=== PATIENT | male | born 1975 | race Caucasian/White ===

== ENCOUNTER 2020-08-27 14:39 | Emergency (ER) | payer BC, OTHER ==
[2020-08-27] MEDS ORDERED: Ondansetron 4 MG/2 ML SDV IVPUSH ONE (14:46)
[2020-08-27] MEDS ORDERED: Sodium Chloride 0.9% 10 ML Syringe FLUSH PRN (14:46)
[2020-08-27] MEDS ORDERED: Ketorolac 30 MG/ML SDV IVPUSH ONE (14:46)
[2020-08-27] MEDS ORDERED: Dexamethasone 4 MG/ML SDV IVPUSH STA (14:47)
[2020-08-27] MEDS ORDERED: Sodium Chloride 0.9% 1,000 ML IV SCH (15:00)
[2020-08-27 15:41] VITALS: BP 183/163; PULSE 83
[2020-08-27] MEDS ORDERED: Morphine 4 MG/ML VIAL IVPUSH ONE (15:45)
--- NOTE | 2020-08-27 15:49 | EDM.PDOC ---
ED HPI GENERAL MEDICAL PROBLEM - General Chief Complaint: Gastrointestinal Problem Stated Complaint: COVID Time Seen by Provider: 08/27/20 14:50 Source of Information: Reports: Patient History Limitations: Reports: No Limitations - History of Present Illness INITIAL COMMENTS - FREE TEXT/NARRATIVE: Patient presented to the ED because of N/V/D x 1 week. He was tested for covid which was negative but his symptoms appeared a day after the testing. He is also c/o headache /, denies any neck stiffness. Headache Pain Score (Numeric/FACES): 9 - Related Data Allergies Allergy/AdvReac Type Severity Reaction Status Date / Time No Known Allergies Allergy Verified 11/18/13 16:00 Home Meds: Home Meds Nicotine [Nicotine Patch] 1 each TD DAILY #20 patch.[id number] 02/13/16 [Rx] hydroCHLOROthiazide [Hydrochlorothiazide] 25 mg PO DAILY #30 tablet 02/13/16 [Rx] Acetaminophen/HYDROcodone [Wray 325-5 MG] 1 - 2 tab PO Q6H PRN #10 tab 08/27/20 [Rx] Ondansetron [Zofran ODT] 4 mg PO Q4H PRN #10 tab.dis 08/27/20 [Rx] dexAMETHasone [Dexamethasone] 6 mg PO DAILY #30 tab 08/27/20 [Rx] Past Medical History - Past Health History Medical/Surgical History: Denies Medical/Surgical History - Infectious Disease History Infectious Disease History: Reports: Chicken Pox - Past Surgical History Musculoskeletal Surgical History: Reports: Arthroscopic Knee, Shoulder Surgery, Other (See Below) Social & Family History - Family History Oncologic: Reports: Pancreatic - Tobacco Use Tobacco Use Status *Q: Never Tobacco User Second Hand Smoke Exposure: No - Caffeine Use Caffeine Use: Reports: None - Recreational Drug Use Recreational Drug Use: No ED ROS GENERAL - Review of Systems Review Of Systems: See Below Constitutional: Reports: No Symptoms HEENT: Reports: No Symptoms Respiratory: Reports: No Symptoms Cardiovascular: Reports: No Symptoms Endocrine: Reports: No Symptoms GI/Abdominal: Reports: Diarrhea, Nausea, Vomiting : Reports: No Symptoms Musculoskeletal: Reports: No Symptoms Skin: Reports: No Symptoms Neurological: Reports: Headache Psychiatric: Reports: No Symptoms Hematologic/Lymphatic: Reports: No Symptoms Immunologic: Reports: No Symptoms ED EXAM, GENERAL - Physical Exam Exam: See Below Exam Limited By: No Limitations General Appearance: Alert, No Apparent Distress Eye Exam: Bilateral Eye: PERRL Nose: Normal Inspection, Normal Mucosa Throat/Mouth: Normal Inspection, Normal Lips, Normal Teeth Head: Atraumatic, Normocephalic Neck: Normal Inspection, Supple, Non-Tender, Full Range of Motion Respiratory/Chest: No Respiratory Distress, Lungs Clear, Normal Breath Sounds Cardiovascular: Normal Peripheral Pulses, Regular Rate, Rhythm, No Edema, No Gallop GI/Abdominal: Soft, Non-Tender, No Organomegaly, Other (hyperactive BS) Back Exam: Normal Inspection, Full Range of Motion Extremities: Normal Inspection, Normal Range of Motion Course - Vital Signs Text/Narrative:: Labs reviewed with the patient NS 1 L bolus Zofran 4 mg IV x1 Toradol 30 mg IV x1 Morphine 4 mg IV x1 Decadron 10 mg IV Last Recorded V/S: Last Vital Signs Temp 36.6 C 08/27/20 14:45 Pulse 83 08/27/20 14:45 Resp 20 08/27/20 14:45 BP 183/163 H 08/27/20 14:45 Pulse Ox 94 L 08/27/20 14:45 - Orders/Labs/Meds Orders: Active Orders 24 hr Category Date Time Status Sodium Chloride 0.9% [Normal Saline] 1,000 ml Med 08/27/20 15:00 Active IV ASDIRECTED Sodium Chloride 0.9% [Saline Flush] Med 08/27/20 14:46 Active 10 ml FLUSH ASDIRECTED PRN Saline Lock Insert [OM.PC] Routine Oth 08/27/20 14:46 Ordered Medication Orders Sodium Chloride (Normal Saline) 1,000 mls @ 999 mls/hr IV ASDIRECTED [facility] Last Admin: 08/27/20 15:06 Dose: 999 mls/hr Documented by: DIFFCAL Sodium Chloride (Saline Flush) 10 ml FLUSH ASDIRECTED PRN PRN Reason: Keep Vein Open Labs: Laboratory Tests 08/27/20 08/27/20 Range/Units 15:00 15:00 WBC 5.6 (3.2-10.1) x10-3/uL RBC 4.35 (3.90-5.90) x10(6)uL Hgb 12.7 L (12.9-17.7) g/dL Hct 38.2 L (38.3-50.1) % MCV 87.9 (80.8-98.7) fL MCH 29.1 (27.0-33.3) pg MCHC 33.1 (28.7-35.3) g/dL RDW 13.2 (12.4-15.0) % Plt Count 199 (117-477) x10(3)uL MPV 7.9 (6.7-11.0) fL Neut % (Auto) 82.3 H (40.3-71.8) % Lymph % (Auto) 11.7 L (15.8-45.3) % [place] % (Auto) 5.4 L (5.5-15.2) % Eos % (Auto) 0.4 (0.1-6.8) % Baso % (Auto) 0.2 L (0.3-3.8) % Neut # (Auto) 4.6 (1.7-6.9) x10-3/uL Lymph # (Auto) 0.7 (0.5-4.5) x10-3/uL [place] # (Auto) 0.3 (0.0-1.2) x10-3/uL Eos # (Auto) 0.0 (0.0-0.6) x10-3/uL Baso # (Auto) 0.0 (0.0-0.3) x10-3/uL Sodium 141 (135-145) mmol/L Potassium 4.1 (3.5-5.3) mmol/L Chloride 103 (100-110) mmol/L Carbon Dioxide 29 (21-32) mmol/L BUN 10 (7-18) mg/dL Creatinine 1.0 (0.70-1.30) mg/dL Est Cr Clr Drug Dosing TNP Estimated GFR (MDRD) > 60 (>60) BUN/Creatinine Ratio 10.0 (9-20) Glucose 144 H (80-116) mg/dL Calcium 7.9 L (8.6-10.2) mg/dL Meds: Medications Generic Name Dose Route Start Last Admin Trade Name Freq PRN Reason Stop Dose Admin Sodium Chloride 1,000 mls @ 999 mls/hr 08/27/20 15:00 08/27/20 15:06 Normal Saline IV 999 mls/hr ASDIRECTED SIMONE Administration Sodium Chloride 10 ml 08/27/20 14:46 Saline Flush FLUSH ASDIRECTED PRN Keep Vein Open Discontinued Medications Generic Name Dose Route Start Last Admin Trade Name Roni PRN Reason Stop Dose Admin Dexamethasone 10 mg 08/27/20 14:47 08/27/20 15:04 Decadron IVPUSH 08/27/20 14:48 10 mg NOW STA Administration Ketorolac Tromethamine 30 mg 08/27/20 14:46 08/27/20 15:04 Toradol IVPUSH 08/27/20 14:47 30 mg ONETIME ONE Administration Morphine Sulfate 4 mg 08/27/20 15:45 Morphine IVPUSH 08/27/20 15:46 ONETIME ONE Ondansetron HCl 4 mg 08/27/20 14:46 08/27/20 15:04 Zofran IVPUSH 08/27/20 14:47 4 mg ONETIME ONE Administration Departure - Departure Time of Disposition: 16:00 Disposition: Home, Self-Care 01 Condition: Good Clinical Impression: COVID-19 - Discharge Information Prescriptions: dexAMETHasone [Dexamethasone] 6 mg PO DAILY #30 tab Acetaminophen/HYDROcodone [Wray 325-5 MG] 1 - 2 tab PO Q6H PRN #10 tab PRN Reason: Pain Ondansetron [Zofran ODT] 4 mg PO Q4H PRN #10 tab.dis PRN Reason: Nausea Instructions: COVID-19 Frequently Asked Questions Referrals: Patric Salazar MD [Primary Care Provider] - Forms: ED Department Discharge Additional Instructions: Please read discharge instructions on COVID-19 Increase oral fluids at least 2-3 liters a day Decadron 6 mg daily for 10 days Wray 5/325, 1-2 tablets every 6 hours as needed for pain Take 1 tablet daily of Vitamin C-500 mg, Vitamin D-2000 Units, Zinc-50 mg Follow up as needed Sepsis Event Note (ED) - Evaluation Sepsis Screening Result: No Definite Risk - Focused Exam Vital Signs: Vital Signs Temp Pulse Resp BP Pulse Ox 08/27/20 14:45 36.6 C 83 20 183/163 H 94 L - My Orders Last 24 Hours: My Active Orders 08/27/20 14:46 Sodium Chloride 0.9% [Saline Flush] 10 ml FLUSH ASDIRECTED PRN Saline Lock Insert [OM.PC] Routine 08/27/20 15:00 Sodium Chloride 0.9% [Normal Saline] 1,000 ml IV ASDIRECTED - Assessment/Plan Last 24 Hours: My Active Orders 08/27/20 14:46 Sodium Chloride 0.9% [Saline Flush] 10 ml FLUSH ASDIRECTED PRN Saline Lock Insert [OM.PC] Routine 08/27/20 15:00 Sodium Chloride 0.9% [Normal Saline] 1,000 ml IV ASDIRECTED
== END 2020-08-27 16:20 | disposition home or self-care (01) ==
LOC: FB.ED 14:39
DX: U07.1 COVID-19 (principal)
CPT/HCPCS: 36415; 80048; 85025; 96374; 96375; 99284-25; J1100; J1885; J2270; J2405; J7030